=== PATIENT | female | born 1945 | race Caucasian/White ===

== ENCOUNTER 2025-05-16 13:20 | Outpatient (CLI) | payer MEDICARE, BC | END 2025-05-16 13:21 | disposition home or self-care (01) | LOC: RAD 13:20 | PROVIDERS: ATTEND Internal Medicine Hematology & Oncology | DX: C78.01 Secondary malignant neoplasm of right lung (principal); C50.811 Malignant neoplasm of overlapping sites of right female breast; R30.0 Dysuria; R06.02 Shortness of breath; J90 Pleural effusion, not elsewhere classified; J98.11 Atelectasis | CPT/HCPCS: 71046 ==

== ENCOUNTER → 2025-05-20 | Day surgery (SDC) | payer MEDICARE, BC ==
[~2025-05-20] MED LIST: Lidocaine 1% PF 5 ML VIAL ONE; Lidocaine 1% w/Epinephrine 1:100K 20 ML VIAL ONE; Sodium Bicarbonate 2.5 MEQ/5 ML SDV ONE
[2025-05-20 10:56] LABS: #Basophils Less than 0.03 10x3/uL (0.0-0.2); #Eosinophils Less than 0.03 10x3/uL (0.0-0.7); #Monocytes 0.55 10x3/uL (0.11-0.59); #Neutrophils 4.88 10x3/uL (1.40-6.50); %Basophils 0.2 % (0.0-1.0); %Eosinophils 0.3 % (0.0-10.0); %Lymphocytes 17.6 % (21.0-51.0); %Monocytes 8.3 % (0.0-10.0); %Neutrophils 73.3 % (42.0-75.0); Hematocrit 44.5 % (36.0-47.0); Hemoglobin 14.6 g/dL (12.0-16.0); Mean Corpuscular Hemoglobin 28.7 pg (27.0-31.0); Mean Corpuscular Volume 87.4 fL (78.0-98.0); Platelet Count 192 10x3/uL (130-400); Red Blood Cell (RBC) Count 5.09 mill/uL (4.20-5.40); White Blood Cell (WBC) Count 6.65 10x3/uL (4.8-10.8)
[2025-05-20 11:10] LABS: INR-International Normal Ratio 1.0; PTT 31.1 sec (22.9-36.1); Prothrombin Time 12.8 sec (12.0-14.7)
== END ==
LOC: ULT 10:47
PROVIDERS: ATTEND Internal Medicine Hematology & Oncology
PROC: 0W993ZZ Drainage of Right Pleural Cavity, Percutaneous Approach (ICD-10-PCS; principal; 2025-05-20)
DX: J90 Pleural effusion, not elsewhere classified (principal); C50.811 Malignant neoplasm of overlapping sites of right female breast; C78.01 Secondary malignant neoplasm of right lung; R30.0 Dysuria; Z91.018 Allergy to other foods; Z91.011 Allergy to milk products
CPT/HCPCS: 32555; 71045; 71046; 85025; 85610; 85730; C1729; 36415

== ENCOUNTER 2025-05-26 11:00 | Outpatient (CLI) | payer MEDICARE, BC | END 2025-05-26 11:01 | disposition home or self-care (01) | LOC: PET 11:00 | PROVIDERS: ATTEND Internal Medicine Hematology & Oncology | DX: C50.811 Malignant neoplasm of overlapping sites of right female breast (principal); C78.01 Secondary malignant neoplasm of right lung; R30.0 Dysuria; R91.1 Solitary pulmonary nodule; J90 Pleural effusion, not elsewhere classified | CPT/HCPCS: 78815; A9552 ==

== ENCOUNTER 2025-06-07 10:55 | Emergency (ER) | payer MEDICARE, BC ==
[2025-06-07 15:51] LABS: Fluid, pH - Pleural Fld Greater than 7.500 (7.60 - 7.66)
[2025-06-07 16:08] LABS: RBC Count-Automated (BF) 894 /cu.mm; WBC/Nucleated-Auto (BF) 489 /cu.mm
[2025-06-07 16:39] LABS: BF Segmented Neutrophils 6 %; Cell Count Non Hematic 23 %
[2025-06-07 17:10] LABS: Fluid, Triglycerides 11.0 mg/dL (Not Available); Pleural Fluid, Amylase 77.0 U/L (Not Available); Pleural Fluid, Glucose 114.0 mg/dL; Pleural Fluid, LDH 134.0 U/L (Not Available); Pleural Fluid, Protein 3.5 g/dL
== END 2025-06-07 15:48 | disposition home or self-care (01) ==
LOC: ERS 10:55
DX: J90 Pleural effusion, not elsewhere classified (principal); Z87.891 Personal history of nicotine dependence
CPT/HCPCS: 71045; 82150; 82945; 83615; 83986; 84157; 84478; 85060; 87116; 87206; 88112; 88305; 88341; 88342; 89051; 93005

== ENCOUNTER 2025-07-14 08:27 | Day surgery (SDC) | payer MEDICARE, BC ==
[2025-07-14] MEDS ORDERED: Lidocaine 1% w/Epinephrine 1:100K 20 ML VIAL ONE (08:41)
[2025-07-14] MEDS ORDERED: Sodium Bicarbonate 2.5 MEQ/5 ML SDV ONE (08:41)
== END 2025-07-14 11:45 | disposition home or self-care (01) ==
LOC: ULT 08:27
PROVIDERS: ATTEND Internal Medicine Hematology & Oncology
DX: J90 Pleural effusion, not elsewhere classified (principal); C50.811 Malignant neoplasm of overlapping sites of right female breast; C78.01 Secondary malignant neoplasm of right lung; R30.0 Dysuria
CPT/HCPCS: 32555; 71045; 71046; C1729

== ENCOUNTER 2025-07-25 12:21 | Day surgery (SDC) | payer MEDICARE, BC | END 2025-07-25 15:55 | disposition home or self-care (01) | LOC: ULT 12:21 | PROVIDERS: ATTEND Internal Medicine Hematology & Oncology | PROC: 0W993ZZ Drainage of Right Pleural Cavity, Percutaneous Approach (ICD-10-PCS; principal; 2025-07-25) | DX: J90 Pleural effusion, not elsewhere classified (principal); C50.811 Malignant neoplasm of overlapping sites of right female breast; C78.01 Secondary malignant neoplasm of right lung; Z87.891 Personal history of nicotine dependence; Z96.652 Presence of left artificial knee joint; Z90.49 Acquired absence of other specified parts of digestive tract; Z90.13 Acquired absence of bilateral breasts and nipples; Z91.0110 Allergy to milk products, unspecified; Z91.018 Allergy to other foods | CPT/HCPCS: 32555; 71045; 71046; C1729 ==

== ENCOUNTER → 2025-08-03 | Day surgery (SDC) | payer MEDICARE, BC ==
[~2025-08-03] MED LIST changes: +Acetaminophen 500 MG TAB ONE; +CEFAZOLIN 1 GM VIAL ONE; -Lidocaine 1% PF 5 ML VIAL ONE
[2025-08-03 08:28] LABS: #Basophils Less than 0.03 10x3/uL (0.0-0.2); #Eosinophils 0.05 10x3/uL (0.0-0.7); #Monocytes 0.60 10x3/uL (0.11-0.59); #Neutrophils 4.84 10x3/uL (1.40-6.50); %Basophils 0.2 % (0.0-1.0); %Eosinophils 0.8 % (0.0-10.0); %Lymphocytes 16.9 % (21.0-51.0); %Monocytes 9.0 % (0.0-10.0); %Neutrophils 72.8 % (42.0-75.0); Hematocrit 45.5 % (36.0-47.0); Hemoglobin 14.4 g/dL (12.0-16.0); Mean Corpuscular Hemoglobin 27.5 pg (27.0-31.0); Mean Corpuscular Volume 86.8 fL (78.0-98.0); Platelet Count 286 10x3/uL (130-400); Red Blood Cell (RBC) Count 5.24 mill/uL (4.20-5.40); White Blood Cell (WBC) Count 6.64 10x3/uL (4.8-10.8)
[2025-08-03 08:39] LABS: INR-International Normal Ratio 0.9; Prothrombin Time 12.5 sec (12.0-14.7)
[2025-08-03 08:40] LABS: PTT 25.7 sec (22.9-36.1)
== END ==
LOC: SPEC 07:30
PROVIDERS: ATTEND Internal Medicine Hematology & Oncology
PROC: 0W993ZZ Drainage of Right Pleural Cavity, Percutaneous Approach (ICD-10-PCS; principal; 2025-08-03)
DX: C50.811 Malignant neoplasm of overlapping sites of right female breast (principal); J91.0 Malignant pleural effusion; C78.01 Secondary malignant neoplasm of right lung; R30.0 Dysuria; Z87.891 Personal history of nicotine dependence
CPT/HCPCS: 32555; 49407; 71045; 71046; 85025; 85610; 85730; C1769; J0690; J1642; J2250; J3010; 36415; 99152; 99153